=== PATIENT | female | born 1940 | race Caucasian/White ===

== ENCOUNTER 2016-11-10 08:06 | Observation (INO) | payer OTHER, SELFPAY ==
[~2016-11-10] VITALS: Ht 154.9 cm; Wt 77.0 kg
[2016-11-10 09:02] LABS: BASO % 0.4 % (0.1-1.2); EOS % 0.3 % (0.7-5.8); GRAN % 69.7 % (34.0-71.1); HEMATOCRIT 39.8 % (34-45); HEMOGLOBIN 13.7 g/dL (11.2-15.7); LYMPH # 2.3 10_X3_uL (1.2-3.7); LYMPH % 22.7 % (19.3-51.7); MEAN CORPUSCULAR HEMOGLOBIN 33.3 pg (27.0-33.0); MEAN CORPUSCULAR HGB CONC 34.4 g/dL (32.0-36.0); MEAN CORPUSCULAR VOLUME 96.6 fL (79-95); MEAN PLATELET VOLUME 9.7 fl (7.5-11.5); MONO # 0.7 10_X3_uL (0.2-0.9); MONO % 6.9 % (4.7-12.5); PLATELET COUNT 192 x10_3/uL (182-369); RED BLOOD COUNT 4.12 x10_6/uL (3.9-5.2); RED CELL DISTRIBUTION WIDTH 12.1 % (11.7-14.4); WHITE BLOOD COUNT 10.1 x10_3/uL (4.0-10.0)
[2016-11-10 09:12] LABS: INR 1.1 (0.9-1.1)
[2016-11-10 09:16] LABS: ALBUMIN 4.1 gm/dL (3.4-5.0); ALKALINE PHOSPHATASE 50 U/L (50-136); ALT/SGPT 12 U/L (3.5-33.9); AST/SGOT 14 U/L (7.04-26.96); BILIRUBIN,TOTAL 0.46 mg/dL (0.0-1.0); BLOOD UREA NITROGEN 14 mg/dL (7-18); CALCIUM 9.9 mg/dL (8.7-10.7); CARBON DIOXIDE 25 mmol/L (21-32); CREATINE KINASE 45 U/L (21-215); CREATININE 0.8 mg/dL (0.6-1.3); GLUCOSE,RANDOM 126 mg/dL (70-99); POTASSIUM 4.1 mmol/L (3.5-5.1); SODIUM 139 mmol/L (136-145); TOTAL PROTEIN 7.7 gm/dL (6.4-8.2)
[2016-11-10 16:40] LABS: CKMB 1.3 ng/ml (0.0-5.0); INR 1.1 (0.9-1.1); PROTHROMBIN TIME (PATIENT) 11.5 SECONDS (9.9-11.1)
[2016-11-10 16:42] LABS: TROP-I < 0.30 NG/ML (0.00-0.30)
[2016-11-10 22:31] LABS: CKMB 1.4 ng/ml (0.0-5.0)
[2016-11-10 22:32] LABS: TROP-I < 0.30 NG/ML (0.00-0.30)
[2016-11-11 04:00] LABS: CKMB 1.4 ng/ml (0.0-5.0)
[2016-11-11 04:05] LABS: BASO # 0.1 10_X3_uL (0.0-0.1); BASO % 0.7 % (0.1-1.2); EOS # 0.1 10_X3_uL (0.0-0.4); GLUCOSE,RANDOM 113 mg/dL (70-99); GRAN # 3.1 10_X3_uL (1.6-6.1); GRAN % 43.5 % (34.0-71.1); HEMATOCRIT 36.3 % (34-45); HEMOGLOBIN 12.6 g/dL (11.2-15.7); LYMPH # 3.2 10_X3_uL (1.2-3.7); LYMPH % 45.3 % (19.3-51.7); MEAN CORPUSCULAR HEMOGLOBIN 33.3 pg (27.0-33.0); MEAN CORPUSCULAR HGB CONC 34.7 g/dL (32.0-36.0); MEAN PLATELET VOLUME 9.9 fl (7.5-11.5); MONO # 0.7 10_X3_uL (0.2-0.9); MONO % 9.5 % (4.7-12.5); PLATELET COUNT 176 x10_3/uL (182-369); RED BLOOD COUNT 3.78 x10_6/uL (3.9-5.2); RED CELL DISTRIBUTION WIDTH 12.3 % (11.7-14.4); TROP-I < 0.30 NG/ML (0.00-0.30); WHITE BLOOD COUNT 7.1 x10_3/uL (4.0-10.0)
[2016-11-11 04:06] LABS: BLOOD UREA NITROGEN 22 mg/dL (7-18); CALCIUM 9.5 mg/dL (8.7-10.7); CARBON DIOXIDE 25 mmol/L (21-32); CREATININE 0.8 mg/dL (0.6-1.3); POTASSIUM 3.8 mmol/L (3.5-5.1); SODIUM 139 mmol/L (136-145)
[2016-11-11 09:48] LABS: CKMB 1.5 ng/ml (0.0-5.0); TROP-I < 0.30 NG/ML (0.00-0.30)
[2016-11-13 09:34] LABS: HEMATOCRIT 39.3 % (34-45); HEMOGLOBIN 13.7 g/dL (11.2-15.7); MEAN CORPUSCULAR HEMOGLOBIN 33.6 pg (27.0-33.0); MEAN CORPUSCULAR HGB CONC 34.9 g/dL (32.0-36.0); MEAN CORPUSCULAR VOLUME 96.3 fL (79-95); MEAN PLATELET VOLUME 9.8 fl (7.5-11.5); RED BLOOD COUNT 4.08 x10_6/uL (3.9-5.2); RED CELL DISTRIBUTION WIDTH 12.5 % (11.7-14.4); WHITE BLOOD COUNT 6.2 x10_3/uL (4.0-10.0)
[2016-11-13 09:45] LABS: BLOOD UREA NITROGEN 20 mg/dL (7-18); CALCIUM 9.9 mg/dL (8.7-10.7); CARBON DIOXIDE 26 mmol/L (21-32); CREATININE 0.9 mg/dL (0.6-1.3); GLUCOSE,RANDOM 160 mg/dL (70-99); POTASSIUM 3.6 mmol/L (3.5-5.1); SODIUM 138 mmol/L (136-145)
[2016-11-13 12:04] LABS: URINE BILIRUBIN NEGATIVE (NEGATIVE); URINE BLOOD TRACE (NEGATIVE); URINE GLUCOSE (UA) NORMAL (NORMAL); URINE KETONE NEGATIVE (NEGATIVE); URINE LEUKOCYTE ESTERASE NEGATIVE (NEGATIVE); URINE NITRATE NEGATIVE (NEGATIVE); URINE PROTEIN NEGATIVE (NEGATIVE)
[2016-11-13 12:05] LABS: URINE BACTERIA 1+ (NONE SEEN); URINE RBC 0-5 /[HPF] (0-2); URINE SQUAMOUS EPITHELIAL CELL 0-10 /[HPF] (NONE SEEN); URINE WBC 0-5 /[HPF] (0-5); UROBILINOGEN NORMAL mg/dL (<1.0)
== END 2016-11-13 11:37 | disposition home or self-care (01) ==
LOC: ER 08:06 → MS 11:39
PROVIDERS: Emergency Medicine; ADMIT Family Medicine
DX: I16.0 Hypertensive urgency (principal); R07.89 Other chest pain; I24.9 Acute ischemic heart disease, unspecified; R51 Headache; N28.89 Other specified disorders of kidney and ureter; I70.1 Atherosclerosis of renal artery; I48.91 Unspecified atrial fibrillation; I11.0 Hypertensive heart disease with heart failure; I50.9 Heart failure, unspecified; R06.02 Shortness of breath; R20.0 Anesthesia of skin; Z79.01 Long term (current) use of anticoagulants; Z79.899 Other long term (current) drug therapy; Z88.1 Allergy status to other antibiotic agents; Z88.0 Allergy status to penicillin; Z88.8 Allergy status to other drugs, medicaments and biological substances; Z90.710 Acquired absence of both cervix and uterus; Z95.0 Presence of cardiac pacemaker
CPT/HCPCS: 36415; 70450; 71010; 74174; 80048; 80053; 80061; 81001; 82550; 82553; 84443; 85025; 85610; 85730; 93005; 93041; 93306; 96374; 96376; 99070; 99284; 99284-25; G0378

== ENCOUNTER 2016-11-14 21:35 | Emergency (ER) | payer OTHER, SELFPAY | END 2016-11-14 23:34 | disposition short-term general hospital (02) | LOC: ER 21:35 | DX: R04.0 Epistaxis (principal); I10 Essential (primary) hypertension; I16.0 Hypertensive urgency; I48.91 Unspecified atrial fibrillation; Z95.1 Presence of aortocoronary bypass graft; Z79.899 Other long term (current) drug therapy; Z79.01 Long term (current) use of anticoagulants; Z88.0 Allergy status to penicillin; Z88.1 Allergy status to other antibiotic agents | CPT/HCPCS: 96361; 96374; 96375; 99070; 99282-25; 99283 ==